=== PATIENT | female | born 1955 | race Caucasian/White ===

== ENCOUNTER 2021-05-19 12:22 | Inpatient (IN) | payer MEDICARE, MEDICAID, SELFPAY ==
[2021-05-19 13:51] VITALS: BP 146/65; PULSE 79; RESP 18; TEMP 36.4; O2SAT 95
[2021-05-19 15:31] VITALS: BMI 26.6
--- NOTE | 2021-05-20 01:11 | PC.NURSE ---
PT signed a 3 day notice on 05/19/21 at 23:54,, social science professor, and Darlyn Barrett notified.
[2021-05-20 05:53] VITALS: BP 168/75; PULSE 77; RESP 20; TEMP 36.1; O2SAT 96
[2021-05-20 07:00] VITALS: BMI 26.6
[2021-05-20 07:47] LABS: MANUAL DIFF FLAG NO
[2021-05-20 07:52] LABS: Basophils Percent Auto 0.8 % (0-2); Eosinophils Absolute Auto 0.2 X10*3/uL (0.0-0.4); Hematocrit 46.1 % (37-47); Hemoglobin 14.8 g/dl (12.0-16.0); Imm Gran Abs Auto 0.01 X10*3/uL (0.00-0.03); Imm Gran Pct Auto 0.2 % (0.0-0.4); Lymphocytes Absolute Auto 1.8 X10*3/uL (1.2-4.9); Lymphocytes Percent Auto 36.1 % (20-40); Mean Corpuscular HGB Conc 32.1 g/dl (31.0-35.0); Mean Corpuscular Hemoglobin 32.5 pg (27.0-33.0); Mean Corpuscular Volume 101.1 fL (80-98); Mean Platelet Volume 10.7 fL (9.4-12.3); Monocytes Absolute Auto 0.4 X10*3/uL (0.1-1.2); Monocytes Percent Auto 8.4 % (2-11); Neutrophils Absolute Auto 2.6 X10*3/uL (2.0-8.3); Neutrophils Percent Auto 51.5 % (45-73); Platelet Count 244 X10*3/uL (160-400); Red Blood Count 4.56 X10*6/uL (4.20-5.50); Red Cell Distribution Width 11.8 % (11.0-16.0)
[2021-05-20 08:13] LABS: Estimated Average Glucose 108 mg/dL; Hemoglobin A1c % 5.4 %
[2021-05-20 08:17] LABS: Alanine Aminotransferase 18 U/L (0-31); Albumin Level 4.1 g/dL (3.5-5.0); Alkaline Phosphatase 94 U/L (39-117); Aspartate Amino Transferase 29 U/L (5-31); Bilirubin Direct 0.2 mg/dL (0.0-0.5); Bilirubin Total 0.4 mg/dL (0.0-1.0); Total Protein 6.3 g/dL (6.5-8.0)
[2021-05-20 08:39] LABS: Thyroid Stimulating Hormone 0.72 uIU/mL (0.32-4.0)
[2021-05-20 09:06] LABS: Folate 14.1 ng/mL (> or = 4.0); Vitamin B12 498 pg/mL (200-900)
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
[2021-05-20 18:00] VITALS: BP 135/65; PULSE 81; RESP 18; TEMP 37; O2SAT 98
[2021-05-21 06:00] VITALS: BP 164/79; PULSE 86; RESP 16; TEMP 36.6; O2SAT 97
--- NOTE | 2021-05-21 12:59 | HO.PSYCHPN ---
Subjective Subjective Date of Service: 05/25/21 Reason For Visit: SCHIZOPHRENIA Subjective Notes: Conditional Voluntary and 3 Day Interim History: The patient has been irritable but not aggressive, she refused Risperdal. We discussed today that her custodial was thinking on evicting her due to biohazzard problems since she defecated on her room Medication Compliance: No Side effects from medications: No Attending Groups: No Review of Systems Acute medical concerns: No Medical Review of Systems: unchanged Mental Status Exam Mental Status Exam Patient Appearance: Disheveled Patient Orientation: Person, Place and Time Level of Consciousness: Awake Patient Behavior: Suspicious Mood Description: Apprehensive Affect Description: Labile Patient Cognition Impaired: No Ability to Follow Directions: Good Speech Pattern: Clear Memory Description: Intact Hallucinations: None Delusions: Paranoid Ideation Thought Process: Distracted Thought Content: positive for Perseveration and positive for Poverty of Content Judgement: Poor Diagnostics Vital Signs (24Hr): Vital Signs - 24 hr 05/20/21 18:00 05/21/21 06:00 Temperature 98.6 F 97.8 F Pulse Rate 81 86 Respiratory Rate 18 16 Blood Pressure 135/65 164/79 H Pulse Oximetry 98 97 Body Mass Index 26.6 Labs Results: 05/20/21 07:38 Labs: Laboratory Results - last 48 hr 05/20/21 05/20/21 05/20/21 07:38 07:38 07:38 WBC 5.0 RBC 4.56 Hgb 14.8 Hct 46.1 MCV 101.1 H MCH 32.5 MCHC 32.1 RDW 11.8 Plt Count 244 MPV 10.7 Immature Gran % (Auto) 0.2 Neut % (Auto) 51.5 Lymph % (Auto) 36.1 [place] % (Auto) 8.4 Eos % (Auto) 3.0 Baso % (Auto) 0.8 Lymph # (Auto) 1.8 [place] # (Auto) 0.4 Eos # (Auto) 0.2 Baso # (Auto) 0.0 Abs Immat Gran (auto) 0.01 Absolute Neuts (auto) 2.6 Absolute Nucleated RBC 0.000 Nucleated RBC % (auto) 0.0 Estimat Average Glucose 108 Hemoglobin A1c % 5.4 Total Bilirubin 0.4 Direct Bilirubin 0.2 AST 29 ALT 18 Alkaline Phosphatase 94 Total Protein 6.3 L Albumin 4.1 Vitamin B12 Folate TSH 0.72 05/20/21 07:38 WBC RBC Hgb Hct MCV MCH MCHC RDW Plt Count MPV Immature Gran % (Auto) Neut % (Auto) Lymph % (Auto) [place] % (Auto) Eos % (Auto) Baso % (Auto) Lymph # (Auto) [place] # (Auto) Eos # (Auto) Baso # (Auto) Abs Immat Gran (auto) Absolute Neuts (auto) Absolute Nucleated RBC Nucleated RBC % (auto) Estimat Average Glucose Hemoglobin A1c % Total Bilirubin Direct Bilirubin AST ALT Alkaline Phosphatase Total Protein Albumin Vitamin B12 498 Folate 14.1 TSH Medications Medications Current Medications Generic Name Dose Route Start Last Admin Trade Name Freq PRN Reason Stop Dose Admin Acetaminophen 650 mg 05/19/21 14:58 Acetaminophen 325 Mg Tablet PO Q6H PRN Headache/Pain Mild Scale (1-3) Al Hydroxide/Mg Hydroxide 30 ml 05/19/21 14:58 Magnesium Hydrox/Alum Hydrox 30 Ml Oral.Susp PO Q6H PRN Heartburn/Nausea Hydroxyzine HCl 25 mg 05/19/21 21:00 Hydroxyzine Hcl 25 Mg Tablet PO BEDTIME PRN Anxiety Magnesium Hydroxide 30 ml 05/19/21 14:58 Milk Of Magnesia 30 Ml Oral.Susp PO DAILY PRN Constipation Nicotine 14 mg 05/19/21 16:15 05/21/21 09:00 Nicotine 14 Mg Patch.Td24 TRANSDERMA Not Given DAILY O[facility] Nicotine Polacrilex 4 mg 05/19/21 15:57 Nicotine Polacrilex 4 Mg Lozenge BUCCAL Q2H PRN Anxiety Risperidone 1 mg 05/19/21 21:00 05/21/21 11:31 Risperidone 1 Mg Tablet PO Not Given BID OSM[facility] Trazodone HCl 50 mg 05/19/21 14:58 Trazodone Hcl 50 Mg Tablet PO BEDTIME PRN Insomnia Allergies Allergies Allergy/AdvReac Type Severity Reaction Status Date / Time Unable to Assess Allergy Unverified 05/19/21 14:58 Assessment & Plan Assessment & Plan (1) Schizophrenia: Status: Acute Code(s): F20.9 - Schizophrenia, unspecified Assessment and Plan: MIddle age female with a previous diagnosis of Schizophrenia without any medications for more than a year, case managed by [facility] referred for aggressive behavior and disorganization. ON intake she denied paranoia and refused treatment. Plan: Gather collateral information Risperdal 1 mg po bid (non-compliant). Greater than 50% of the session was spent on counseling and/or coordination of care Reason for contiued inpatient stay Substantial Risk for: rapid decompensation and med/psych decompensation
--- NOTE | 2021-05-21 15:49 | PM.EVENT ---
Event Note Date of Service: 05/21/21 Event Note: Routine consult in for 66 year old female with history of schizophrenia admitted for aggressive behavior and disorganization. Patient was observed ambulating in the hallway without difficulty, speaking in full sentences. Declined medical evaluation.
[2021-05-22 08:43] VITALS: BP 141/89; PULSE 80; RESP 20; TEMP 36.8; O2SAT 97
--- NOTE | 2021-05-22 09:19 | P.PNPSI_ITS ---
Subjective Subjective Date of Service: 05/22/21 Reason For Visit: SCHIZOPHRENIA Interim History: MD entered pt's room for interview. she apeared to be sleeping but was rousable to loud voice. she turned in her bed and said, I refuse!! please would you leave me alone? and close the door on your way out. MD complied with her expressed wishes. per staff, pt has entered a 3-day notice. she is refusing medication. she has been noted to often be hostile toward staff. Mental Status Exam Mental Status Exam Narrative: under sheets lying in bed mid-morning. no PMA/PMR/ not cooperative. speech rapid and terse. thoughts linear and logical in brief interaction. no delusions or paranoia explicitly expressed. affect constricted, hyper-intense, labile. mood, SI/HI/AVH unable to be assessed as pt was not cooperative with evaluation. Diagnostics Vital Signs (24Hr): Vital Signs - 24 hr 05/22/21 08:43 Temperature 98.3 F Pulse Rate 80 Respiratory Rate 20 Blood Pressure 141/89 H Pulse Oximetry 97 Body Mass Index 26.6 Labs Results: 05/20/21 07:38 Medications Medications Current Medications Generic Name Dose Route Start Last Admin Trade Name Freq PRN Reason Stop Dose Admin Acetaminophen 650 mg 05/19/21 14:58 Acetaminophen 325 Mg Tablet PO Q6H PRN Headache/Pain Mild Scale (1-3) Al Hydroxide/Mg Hydroxide 30 ml 05/19/21 14:58 Magnesium Hydrox/Alum Hydrox 30 Ml Oral.Susp PO Q6H PRN Heartburn/Nausea Hydroxyzine HCl 25 mg 05/19/21 21:00 Hydroxyzine Hcl 25 Mg Tablet PO BEDTIME PRN Anxiety Magnesium Hydroxide 30 ml 05/19/21 14:58 Milk Of Magnesia 30 Ml Oral.Susp PO DAILY PRN Constipation Nicotine 14 mg 05/19/21 16:15 05/21/21 09:00 Nicotine 14 Mg Patch.Td24 TRANSDERMA Not Given DAILY [facility] Nicotine Polacrilex 4 mg 05/19/21 15:57 Nicotine Polacrilex 4 Mg Lozenge BUCCAL Q2H PRN Anxiety Risperidone 1 mg 05/19/21 21:00 05/21/21 22:12 Risperidone 1 Mg Tablet PO Not Given BID OSMEL Trazodone HCl 50 mg 05/19/21 14:58 Trazodone Hcl 50 Mg Tablet PO BEDTIME PRN Insomnia Allergies Allergies Allergy/AdvReac Type Severity Reaction Status Date / Time Unable to Assess Allergy Unverified 05/19/21 14:58 Assessment & Plan Assessment & Plan (1) Schizophrenia: Status: Acute Code(s): F20.9 - Schizophrenia, unspecified Assessment and Plan: 66 yo female with a previous diagnosis of Schizophrenia without any m edications for more than a year, case managed by [facility] referred for aggressive behavior and disorganization. ON intake she denied paranoia and refused treatment. Plan: Gather collateral information Risperdal 1 mg po bid (non-compliant). Greater than 50% of the session was spent on counseling and/or coordination of care Reason for contiued inpatient stay Substantial Risk for: harm to self, harm to others and inability to function
--- NOTE | 2021-05-23 08:41 | PC.ADMIT ---
Patient was admitted as a conditional voluntary from [facility] ED. She was removed from her prison under a section 12 by ambulance and restrained on a stretcher for transport. Reortedly she was aggressive to staff in the ED at [facility] and was medically restrained. Patient was then restrained on stretcher for transport to [facility].Upon arrival to unit she was very angry about being restrained and also about being admitted against her will. She was on a section 12 for transport and signed a Conditional Voluntary in the ED although she insisted she did not. Patient was admitted with a diagnosis of schizophrenia. Her Medical history includes COPD, Arthritis, Cardiac Issues and Gastrointestinal problems. During admission assessment patient was disorganized, angry, uncooperative and paranid. Patient stated, I am here against my will. I never would have signed a paper admitting myself. She left room during assessment and was walking up and down the halls looking for an exit. She also was perseverating on her boots which she could not have because they are very heavy steel toed boots. She wanted to go out for a smoke walk. Patient refused to continue with assessment and slammed door. She was verbally aggressive but not threatening. Her admission papers were not signed. Patient continued to perseverate on the conditional voluntary she insisted she was duped into signing. She accepted the pamphlets on her legal status rights as a patient and [facility] patient information. She also accepted a Human Righs Form. Several attempts werer made during the remainder of the shift to complete the admission assessment without success.
--- NOTE | 2021-05-23 09:11 | PC.NURSE ---
Patient is calm although isolative. She presents on unit for meals however will not engage with others. She attends to he ADL's. Will not take meds. She has signed a 3 day which is up on Monday.
--- NOTE | 2021-05-23 11:36 | HO.PSYCHPN ---
Subjective Subjective Date of Service: 05/23/21 Reason For Visit: SCHIZOPHRENIA Interim History: MD entered pt's room for interview. she appeared to be sleeping but was rousable to conversational voice. she turned in her bed and said, I refuse!! MD identified himself as a psych MD who had seen her yesterday; she denied having seen a psych MD yesterday and noted she did not recognize MD's voice. she then went on, please would you leave me alone? and close the door on your way out. MD complied with her expressed wishes. per staff, no change from yesterday. Mental Status Exam Mental Status Exam Narrative: under sheets lying in bed mid-morning. no PMA/PMR. not cooperative. speech rapid and terse. thoughts linear and logical in brief interaction. no delusions or paranoia explicitly expressed. affect constricted, hyper-intense, labile. mood, SI/HI/AVH unable to be assessed as pt was not cooperative with evaluation. Diagnostics Vital Signs (24Hr): Body Mass Index 26.6 Labs Results: 05/20/21 07:38 Medications Medications Current Medications Generic Name Dose Route Start Last Admin Trade Name Freq PRN Reason Stop Dose Admin Acetaminophen 650 mg 05/19/21 14:58 Acetaminophen 325 Mg Tablet PO Q6H PRN Headache/Pain Mild Scale (1-3) Al Hydroxide/Mg Hydroxide 30 ml 05/19/21 14:58 Magnesium Hydrox/Alum Hydrox 30 Ml Oral.Susp PO Q6H PRN Heartburn/Nausea Hydroxyzine HCl 25 mg 05/19/21 21:00 Hydroxyzine Hcl 25 Mg Tablet PO BEDTIME PRN Anxiety Magnesium Hydroxide 30 ml 05/19/21 14:58 Milk Of Magnesia 30 Ml Oral.Susp PO DAILY PRN Constipation Nicotine 14 mg 05/19/21 16:15 05/23/21 08:10 Nicotine 14 Mg Patch.Td24 TRANSDERMA Not Given DAILY O[facility] Nicotine Polacrilex 4 mg 05/19/21 15:57 Nicotine Polacrilex 4 Mg Lozenge BUCCAL Q2H PRN Anxiety Risperidone 1 mg 05/19/21 21:00 05/23/21 08:10 Risperidone 1 Mg Tablet PO Not Given BID OSMEL Trazodone HCl 50 mg 05/19/21 14:58 Trazodone Hcl 50 Mg Tablet PO BEDTIME PRN Insomnia Allergies Allergies Allergy/AdvReac Type Severity Reaction Status Date / Time Unable to Assess Allergy Unverified 05/19/21 14:58 Assessment & Plan Assessment & Plan (1) Schizophrenia: Status: Acute Code(s): F20.9 - Schizophrenia, unspecified Assessment and Plan: 66 yo female with a previous diagnosis of Schizophrenia without any medications for more than a year, case managed by [facility] referred for aggressive behavior and disorganization. ON intake she denied paranoia and refused treatment. Plan: Gather collateral information Risperdal 1 mg po bid (non-compliant). Greater than 50% of the session was spent on counseling and/or coordination of care Reason for contiued inpatient stay Substantial Risk for: harm to others and inability to function
--- NOTE | 2021-05-24 10:42 | HO.PSYCHPN ---
Subjective Subjective Date of Service: 05/24/21 Reason For Visit: SCHIZOPHRENIA Interim History: MD entered doorway of pt's room for interview and introduced himself. pt responded, yeah, and i'm miss ragsdale! get out of my face! (MD was at least 10 feet away from patient at the time, outside of her room). MD acknowledged her wish and left her vicinity as she angelica from the bed and slammed the door to her room shut. per staff, no change from yesterday. Mental Status Exam Mental Status Exam Narrative: lying in bed on her side mid-morning, facing the open doorway. no PMA/PMR. not cooperative. speech rapid and terse. thoughts linear and illogical in brief interaction. no delusions or paranoia explicitly expressed. affect constricted, hyper-intense, labile. mood, SI/HI/AVH unable to be assessed as pt was not cooperative with evaluation. Diagnostics Vital Signs (24Hr): Body Mass Index 26.6 Labs Results: 05/20/21 07:38 Medications Medications Current Medications Generic Name Dose Route Start Last Admin Trade Name Freq PRN Reason Stop Dose Admin Acetaminophen 650 mg 05/19/21 14:58 Acetaminophen 325 Mg Tablet PO Q6H PRN Headache/Pain Mild Scale (1-3) Al Hydroxide/Mg Hydroxide 30 ml 05/19/21 14:58 Magnesium Hydrox/Alum Hydrox 30 Ml Oral.Susp PO Q6H PRN Heartburn/Nausea Hydroxyzine HCl 25 mg 05/19/21 21:00 Hydroxyzine Hcl 25 Mg Tablet PO BEDTIME PRN Anxiety Magnesium Hydroxide 30 ml 05/19/21 14:58 Milk Of Magnesia 30 Ml Oral.Susp PO DAILY PRN Constipation Nicotine 14 mg 05/19/21 16:15 05/24/21 08:55 Nicotine 14 Mg Patch.Td24 TRANSDERMA Not Given DAILY O[facility] Nicotine Polacrilex 4 mg 05/19/21 15:57 Nicotine Polacrilex 4 Mg Lozenge BUCCAL Q2H PRN Anxiety Risperidone 1 mg 05/19/21 21:00 05/24/21 08:55 Risperidone 1 Mg Tablet PO Not Given BID O[facility] Trazodone HCl 50 mg 05/19/21 14:58 Trazodone Hcl 50 Mg Tablet PO BEDTIME PRN Insomnia Allergies Allergies Allergy/AdvReac Type Severity Reaction Status Date / Time Unable to Assess Allergy Unverified 05/19/21 14:58 Assessment & Plan Assessment & Plan (1) Schizophrenia: Status: Acute Code(s): F20.9 - Schizophrenia, unspecified Assessment and Plan: 66 yo female with a previous diagnosis of Schizophrenia without any medications for more than a year, case managed by [facility] referred for aggressive behavior and disorganization. ON intake she denied paranoia and refused treatment. Plan: Gather collateral information Risperdal 1 mg po bid (non-compliant). Greater than 50% of the session was spent on counseling and/or coordination of care Reason for contiued inpatient stay Substantial Risk for: inability to function
[2021-05-24 14:01] VITALS: BP 129/58; PULSE 73; RESP 18; TEMP 36.9; O2SAT 95
[2021-05-24 18:00] VITALS: RESP 18
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
--- NOTE | 2021-05-25 09:11 | PM.DS ---
DS: Providers Provider Date of admission: 05/19/21 12:22 Primary care physician: Barbara Physician Consults: 05/19/21 14:58 Consult to Hospitalist Routine Consulting Provider: Hospitalist Reason For Exam: Direct admission DS: Diagnosis Discharge Diagnosis (1) Schizophrenia: Status: Acute DS: Summary Hospital Course Hospital Course: The patient was admitted to the ED of [facility] since the staff of her supported housing program reported that she has been progressively more agitated, disorganized and threatening. She was sent on a [id number] and later she signed CV and a 3 day notice the same day. During the intake and review of her past psychiatric history Time Spent with Patient Time attestation: Total time spent providing and/or coordinating discharge services: Physical Exam Vital Signs: Vital Signs: Last Vital Signs Temp 98.5 F 05/24/21 14:01 Pulse 73 05/24/21 14:01 Resp 18 05/24/21 18:00 BP 129/58 L 05/24/21 14:01 Pulse Ox 95 05/24/21 14:01 Body Mass Index 26.6 Discharge Plan Discharge Date of admission: 05/19/21 12:22 Attending physician on admission: Parmjit Coles Primary Care Provider: Physician,Barbara Consulting providers: Tanner Dao ; Debbi Franco ; Pema Galo ; Erick Judge ; Cookie Leonard ; Christophe Avilez ; Erin Pinto ; Fredy Dia ; Keisha Goldstein ; Marcellus Oleary ; Ross Flores ; Hugh Epperson ; Rea Perry ; Angel Conklin ; Franck Pichardo ; Karina Olmos ; Ruby Aponte ; Annabelle Smith ; Pinky Gavin ; Jessica Nance ; Cl Gomez I Referrals: Physician,Unknown [Primary Care Provider] - 1 Week
== END 2021-05-25 14:00 | disposition home or self-care (01) | DRG 885 ==
PROVIDERS: Admitting Provider Psychiatry & Neurology Psychiatry; Visit Provider Psychiatry & Neurology Psychiatry
DX: F20.9 Schizophrenia, unspecified (principal); F17.210 Nicotine dependence, cigarettes, uncomplicated; Z71.6 Tobacco abuse counseling; Z87.820 Personal history of traumatic brain injury
CPT/HCPCS: 36415; 80076; 82607; 82746; 83036; 84443; 85025

== ENCOUNTER 2025-10-23 14:50 | Outpatient (AMB) | payer MEDICARE, MEDICAID, SELFPAY ==
--- NOTE | 2025-10-23 14:59 | A.OFFVIS_ITS ---
Vital Signs 10/23/25 15:00 Height 5 ft 4 in Weight 190 lb BMI 32.6 Intake Visit Reasons: [place] on Lt foot near great toe Intake Note: Vira is a 70 year old female who presents today as a new patient for an evaluation of her corn. Patient states corn is located bilaterally on the 4th and 5th toe. She has not tried any previous treatment and states this has been going for months Allergies Unable to Assess Allergy (Verified 10/23/25 15:01) HPI Comments Details: The patient is a 70 year old female with a PMH as seen below presenting with left foot pain. She reports bothersome calluses, with the left foot being the primary source of discomfort, which she attributes to the toes rubbing. She denies any associated bleeding or drainage from the calluses. She reports having used a topical antifungal cream twice daily for her nails over the past three months and believes the fungal issue has resolved. She denies any recent pedal injuries. Denies any other pedal concerns. [facility] Medical History (Updated 10/26/25 @ 13:42 by Manjula Clarke DPM) Varicose veins of both lower extremities Pain in left toe(s) HD (heloma durum) Other specified epidermal thickening Traumatic brain injury Social History Household Members: Other Household Members Other:: Patient resides in a residential care/treatment facililty run by [facility] Housing: Other Housing Other:: residential care/treatment facility Do you presently have visiting nurse or other home services: No Patient Tobacco Use Status: Current everyday Tobacco user Tobacco use type: Cigarette Cigarette Packs Per Day: 1 Cigarettes Per Day: 20.0 e-Cigarette/Vaping Use: Never Used service: No Sexual orientation: She reports she is A sexual . Review of Systems Const Details: - Integumentary: Reports a painful callus to the left foot. All systems reviewed & are unremarkable except as noted in HPI and below Physical Exam Vital Signs: BMI result Body Mass Index 32.6 Extrem Other: B/L LE Focused Physical Exam: Derm: Hyperkeratotic lesion noted to the medial aspect of the left 4th toe consistent with a heloma dura. No active bleeding, purulence, or drainage noted. No open lesions, abrasions, or wounds noted. No ecchymosis or discoloration noted. Toenails within normal length and slightly thickened. No clinical signs of infection noted. Vasc: DP/PT pulses palpable. CFT < 3 secs. Temp gradient warm to warm. Pedal hair diminished. Varicosities noted. Neuro: Protective sensations grossly intact to light touch. MSK: Pain on palpation to the hyperkeratotic area noted. No crepitus or fluctuance noted. ROM of the forefoot, hindfoot, and ankles WNL. Hammertoe deformities noted. Nonantalgic gait noted. Office Procedures AMB Debridement/Avulsion Podia Details: Debrided the hyperkeratotic lesion to the left 4th toe using a #15 blade without incidents. [id number] of Callus (1) Procedure code (CPT) selection complete Assessment & Plan Assessment & Plan (1) Other specified epidermal thickening: Code(s): L85.8 - Other specified epidermal thickening Category: Medical (2) HD (heloma durum): Code(s): L84 - Corns and callosities Category: Medical (3) Varicose veins of both lower extremities with complications: Code(s): I83.893 - Varicose veins of bilateral lower extremities with other complications Plan Patient was informed and verbally consented to the use of an ambient scribe for clinic note documentation during this visit. I informed the patient that her callus is a heloma durum, which is caused by the way the bones in her toes push against each other. I explained that these types of calluses unfortunately tend to recur. We discussed that if the pain continues to be severe, we could obtain X-rays to look at the bone structure and consider a surgical procedure which would prevent the callus from recurring. I recommended she could put a Band-Aid over the area to prevent rubbing if she is wearing tighter shoes. Will have her return in one month to begin routine nail and callus care. - The heloma durum on the left fourth toe was debrided. - The patient was advised that if the pain becomes severe, X-rays would be recommended to evaluate the bone structure. - The patient was instructed to use a Band-Aid over the area to prevent rubbing when wearing tighter shoes. Advised patient to avoid tight fitting shoes and wear shoes with a wide toebox. RTC in 1 month for routine nail/foot care. Orders: Orders AMB Debridement/Avulsion Podiatry 10/23/25 I83.893 - Varicose veins of bilateral lower extremities with other complications, I83.93 - Asymptomatic varicose veins of bilateral lower extremities, L84 - Corns and callosities, L85.8 - Other specified epidermal thickening, M79.675 - Pain in left toe(s) Coding Level of Care Code New Pt Level 3 (72832) Diagnoses Other specified epidermal thickening L85.8 HD (heloma durum) L84 Varicose veins of both lower extremities with complications I83.893 CPT Codes Skin Debridement - CPT: 02710-Xqovulbopui of Callus (1) ([id number]) Time Spent (min) 35 Comment 5 mins for the procedure
[2025-10-23 15:00] VITALS: BMI 32.6
== END 2025-10-23 15:13 | disposition home or self-care (01) ==
LOC: HO.HPODS 14:51
PROVIDERS: Visit Provider Student in an Organized Health Care Education/Training Program
DX: L85.8 Other specified epidermal thickening (principal); L84 Corns and callosities; I83.893 Varicose veins of bilateral lower extremities with other complications
CPT/HCPCS: 11055; 99203

== ENCOUNTER → 2025-10-23 14:50 | Outpatient (BNVA) | payer MEDICARE, MEDICAID, SELFPAY | PROVIDERS: Visit Provider Student in an Organized Health Care Education/Training Program | DX: L84 Corns and callosities (principal); L85.8 Other specified epidermal thickening; I83.893 Varicose veins of bilateral lower extremities with other complications; M79.675 Pain in left toe(s); Z87.820 Personal history of traumatic brain injury | CPT/HCPCS: 11055; 99202 ==